=== PATIENT | female | born 1985 | race Caucasian/White ===

== ENCOUNTER → 2024-01-28 08:42 | Outpatient (BNVA) | payer MEDICAID, SELFPAY | PROVIDERS: Referring Provider Nurse Practitioner Family; Visit Provider Nurse Practitioner Family | DX: L71.8 Other rosacea (principal); D22.4 Melanocytic nevi of scalp and neck; T49.0X5A Adverse effect of local antifungal, anti-infective and anti-inflammatory drugs, initial encounter; X58.XXXA Exposure to other specified factors, initial encounter | CPT/HCPCS: 99203 ==

== ENCOUNTER 2024-02-26 15:08 | Outpatient (CLI) | payer MEDICAID, SELFPAY ==
[2024-02-27 14:55] LABS: COMPLEMENT, TOTAL (CH50) 58 U/mL (31-60)
[2024-02-28 08:33] LABS: COMPLEMENT COMPONENT C3C 116 mg/dL (83-193); COMPLEMENT COMPONENT C4C 21 mg/dL (15-57)
[2024-02-28 08:44] LABS: CENTROMERE B ANTIBODY <1.0 NEG AI (<1.0 NEG); JO-1 ANTIBODY <1.0 NEG AI (<1.0 NEG); RNP ANTIBODY <1.0 NEG AI (<1.0 NEG); SCL-70 ANTIBODY <1.0 NEG AI (<1.0 NEG); SJOGREN'S ANTIBODY (SS-A) <1.0 NEG AI (<1.0 NEG); SM ANTIBODY <1.0 NEG AI (<1.0 NEG); SS-B <1.0 NEG AI (<1.0 NEG)
[2024-03-01 14:38] LABS: THYROID PEROXIDASE ANTIBODIES 3 IU/mL (<9)
[2024-03-01 15:15] LABS: ANA SCREEN, IFA NEGATIVE (NEGATIVE)
== END 2024-02-26 15:09 | disposition home or self-care (01) ==
LOC: LAB 15:11
PROVIDERS: PCP Nurse Practitioner Family; Visit Provider Nurse Practitioner Family
DX: L30.9 Dermatitis, unspecified (principal)
CPT/HCPCS: 36415; 86160; 86162; 86235; 86255; 86376